=== PATIENT | female | born 1980 | race Caucasian/White ===

== ENCOUNTER 2022-04-19 16:43 | Outpatient (CLI) | payer MEDICARE, SELFPAY | END 2022-04-19 16:44 | disposition home or self-care (01) | LOC: AMB 04-25 15:20 | PROVIDERS: Visit Provider Family Medicine | DX: G40.909 Epilepsy, unspecified, not intractable, without status epilepticus (principal) | CPT/HCPCS: A0425; A0427 ==

== ENCOUNTER 2022-11-18 04:42 | Outpatient (CLI) | payer MEDICARE, SELFPAY | END 2022-11-18 04:43 | disposition home or self-care (01) | PROVIDERS: Visit Provider Family Medicine | DX: R56.9 Unspecified convulsions (principal); F12.10 Cannabis abuse, uncomplicated | CPT/HCPCS: A0425; A0427 ==

== ENCOUNTER 2022-12-22 16:17 | Outpatient (CLI) | payer MEDICARE, SELFPAY | END 2022-12-22 16:18 | disposition home or self-care (01) | LOC: AMB 12-27 09:57 | PROVIDERS: Visit Provider Family Medicine | DX: R56.9 Unspecified convulsions (principal) | CPT/HCPCS: A0425; A0427 ==

== ENCOUNTER 2023-01-11 06:12 | Outpatient (CLI) | payer MEDICARE, SELFPAY | END 2023-01-11 06:13 | disposition home or self-care (01) | LOC: AMB 01-16 11:13 | PROVIDERS: Visit Provider Family Medicine | DX: R56.9 Unspecified convulsions (principal) | CPT/HCPCS: A0425; A0433 ==

== ENCOUNTER 2023-02-04 05:55 | Outpatient (CLI) | payer MEDICARE, SELFPAY | END 2023-02-04 05:56 | disposition home or self-care (01) | LOC: AMB 02-08 10:37 | PROVIDERS: Visit Provider Internal Medicine | DX: R56.9 Unspecified convulsions (principal); R41.82 Altered mental status, unspecified | CPT/HCPCS: A0425; A0433 ==

== ENCOUNTER 2023-02-04 10:25 | Outpatient (CLI) | payer MEDICARE, SELFPAY | END 2023-02-04 10:26 | disposition home or self-care (01) | LOC: AMB 02-08 10:56 | PROVIDERS: Visit Provider Family Medicine | DX: G40.909 Epilepsy, unspecified, not intractable, without status epilepticus (principal); E83.39 Other disorders of phosphorus metabolism; E87.29 Other acidosis | CPT/HCPCS: A0425; A0426; A0434 ==

== ENCOUNTER 2023-10-13 00:42 | Outpatient (CLI) | payer MEDICARE, SELFPAY | END 2023-10-13 00:43 | disposition home or self-care (01) | LOC: AMB 10-25 12:00 | PROVIDERS: Visit Provider Family Medicine | DX: G40.909 Epilepsy, unspecified, not intractable, without status epilepticus (principal) | CPT/HCPCS: A0425; A0433 ==

== ENCOUNTER 2024-01-19 07:36 | Outpatient (CLI) | payer MEDICARE, SELFPAY | END 2024-01-19 07:37 | disposition home or self-care (01) | LOC: AMB 01-21 15:39 | PROVIDERS: Visit Provider Family Medicine | DX: G40.909 Epilepsy, unspecified, not intractable, without status epilepticus (principal); R41.82 Altered mental status, unspecified | CPT/HCPCS: A0425; A0427 ==

== ENCOUNTER 2024-02-21 14:38 | Outpatient (CLI) | payer MEDICARE, SELFPAY | END 2024-02-21 14:39 | disposition home or self-care (01) | LOC: AMB 02-26 18:05 | PROVIDERS: Visit Provider Emergency Medicine | DX: R21 Rash and other nonspecific skin eruption (principal); T78.1XXA Other adverse food reactions, not elsewhere classified, initial encounter | CPT/HCPCS: A0998 ==

== ENCOUNTER 2024-07-02 15:45 | Outpatient (CLI) | payer MEDICARE, SELFPAY | END 2024-07-02 15:46 | disposition home or self-care (01) | LOC: AMB 07-12 01:47 | PROVIDERS: Visit Provider Student in an Organized Health Care Education/Training Program | DX: R07.89 Other chest pain (principal) | CPT/HCPCS: A0425; A0427 ==

== ENCOUNTER 2025-04-16 10:15 | Outpatient (CLI) | payer MEDICARE, SELFPAY | END 2025-04-16 10:16 | disposition home or self-care (01) | PROVIDERS: Visit Provider Family Medicine | DX: R07.89 Other chest pain (principal) | CPT/HCPCS: A0998 ==

== ENCOUNTER 2025-06-02 19:59 | Outpatient (CLI) | payer MEDICARE, SELFPAY | END 2025-06-02 20:00 | disposition home or self-care (01) | LOC: AMB 06-06 10:19 | PROVIDERS: Visit Provider Emergency Medicine Emergency Medical Services | DX: F41.0 Panic disorder [episodic paroxysmal anxiety] (principal) | CPT/HCPCS: A0998 ==

== ENCOUNTER 2025-06-11 01:08 | Outpatient (CLI) | payer MEDICARE, SELFPAY | END 2025-06-11 01:09 | disposition home or self-care (01) | LOC: AMB 08:38 | PROVIDERS: Visit Provider Emergency Medicine | DX: R10.9 Unspecified abdominal pain (principal); R42 Dizziness and giddiness | CPT/HCPCS: A0425; A0427 ==